=== PATIENT | female | born 1980 | race Two or more races ===

== ENCOUNTER → 2017-01-15 | Outpatient (CLI) | payer BC, OTHER ==
[~2017-01-15] MED LIST: FENTANYL PF 100 MCG/2ML ONE; HYDR-3240 PO; IBUP-1222 PO; MIDAZOLAM 1 MG/ML, 2ML ONE; NONE PER PT; OXYC-302 PO
== END ==
LOC: STAR 12:29
PROVIDERS: ATTEND Obstetrics & Gynecology Female Pelvic Medicine and Reconstructive Surgery
DX: Z02.9 Encounter for administrative examinations, unspecified (principal)

== ENCOUNTER 2017-01-20 11:53 | Observation (INO) | payer BC, OTHER ==
[2017-01-15 13:08] VITALS: BP 107/76
[~2017-01-20] VITALS: Ht 160 cm; Wt 74.7 kg
[~2017-01-20 11:53] MED LIST changes: +CEFAZOLIN 1,000 MG ONE; +DEXAMETHASONE 4 MG/ML, 1ML ONE; -FENTANYL PF 100 MCG/2ML ONE; +GLYCOPYRROLATE 0.2MG/1ML, 5ML ONE; +KETOROLAC 30 MG/1 ML ONE; -MIDAZOLAM 1 MG/ML, 2ML ONE; +NEOSTIGMINE 1 MG/ML, 10ML ONE; +ONDANSETRON 2MG/ML, 2ML ONE; +PROPOFOL 10 MG/ML, 20ML ONE; +ROCURONIUM 10 MG/ML ONE
[2017-01-20] MEDS ORDERED: LACTATED RINGERS 1,000 ML IV SCH (12:39)
[2017-01-20] MEDS ORDERED: LIDOCAINE 1%, 2ML ONE (12:52)
[2017-01-20] MEDS ORDERED: LIDOCAINE 1%, 2ML SQ PRN (13:00)
[2017-01-20 13:04] LABS: HCG UR OBC PASS
[2017-01-20] MEDS ORDERED: EPINEPHRINE 1 MG/ML, 1ML ONE (15:58)
[2017-01-20] MEDS ORDERED: ACETAMINOPHEN 325 MG TABLET PO PRN (16:30)
[2017-01-20] MEDS ORDERED: OXYcodone 5 MG/5 ML ORAL.SOL UDC PO PRN (16:30)
[2017-01-20] MEDS ORDERED: METOCLOPRAMIDE 5 MG/ML, 2ML IV PRN (16:30)
[2017-01-20] MEDS ORDERED: PROMETHAZINE 25 MG/ML, 1ML IV PRN (16:30)
[2017-01-20] MEDS ORDERED: ONDANSETRON 2MG/ML, 2ML IVPush PRN (16:30)
[2017-01-20] MEDS ORDERED: HYDROmorphone 1 MG/ML, 1ML IV PRN ×2 (16:30→22:00)
[2017-01-20] MEDS ORDERED: HYDROmorphone 1 MG/ML, 1ML ONE (18:03)
[2017-01-20] MEDS ORDERED: ACETAMINOPHEN 650 MG/20.3 ML UDC ONE (18:03)
[2017-01-20] MEDS ORDERED: ONDANSETRON 2MG/ML, 2ML ONE (18:03)
[2017-01-20] MEDS ORDERED: FENTANYL PF 100 MCG/2ML ONE (18:03)
[2017-01-20] MEDS ORDERED: OXYcodone 5 MG/5 ML ORAL.SOL UDC ONE (18:04)
[2017-01-20] MEDS: FENTANYL PF 100 MCG/2ML IV PRN ×2 (18:17→18:34)
[2017-01-20 21:30] VITALS: BP 106/60
[2017-01-20] MEDS ORDERED: OXYcodone/APAP 5/325MG TABLET PO PRN (22:00)
[2017-01-20] MEDS ORDERED: HYDROcodone/APAP 5/325 TABLET PO PRN (22:00)
[2017-01-20] MEDS ORDERED: ONDANSETRON 2MG/ML, 2ML IV PRN (22:00)
[2017-01-20] MEDS ORDERED: PROMETHAZINE 25 MG/ML, 1ML IV ONE (22:00)
[2017-01-20] MEDS ORDERED: KETOROLAC 30 MG/1 ML IV PRN (22:00)
[2017-01-20] MEDS ORDERED: IBUPROFEN 600 MG TABLET PO PRN (22:00)
== END 2017-01-21 06:00 | disposition home or self-care (01) ==
LOC: OUT 11:53 → 4NOR 20:20 → OUT 21:40 → 4NOR 21:41 → UNDOADMIN 21:41 → UNDODISIN 01-21 06:00
PROVIDERS: ADMIT Obstetrics & Gynecology Female Pelvic Medicine and Reconstructive Surgery; ATTEND Obstetrics & Gynecology Female Pelvic Medicine and Reconstructive Surgery
DX: N92.1 Excessive and frequent menstruation with irregular cycle (principal); N94.6 Dysmenorrhea, unspecified; N39.3 Stress incontinence (female) (male); N81.11 Cystocele, midline; N81.5 Vaginal enterocele; N81.6 Rectocele; N81.89 Other female genital prolapse; Z30.2 Encounter for sterilization
CPT/HCPCS: 57265; 57288; 58563; 58662; 81025; C1771; G0378; J0171; J0690; J1100; J1885; J2250; J2405; J2704; J2710; J3010; J3490; J7120

== ENCOUNTER 2021-02-15 10:32 | Outpatient (CLI) | payer OTHER, MEDICAID ==
[~2021-02-15 10:32] MED LIST changes: -CEFAZOLIN 1,000 MG ONE; -DEXAMETHASONE 4 MG/ML, 1ML ONE; -GLYCOPYRROLATE 0.2MG/1ML, 5ML ONE; +HYDR-2214 PO; -HYDR-3240 PO; -KETOROLAC 30 MG/1 ML ONE; -NEOSTIGMINE 1 MG/ML, 10ML ONE; -ONDANSETRON 2MG/ML, 2ML ONE; -OXYC-302 PO; +OXYC1TAB12 PO; -PROPOFOL 10 MG/ML, 20ML ONE; -ROCURONIUM 10 MG/ML ONE
== END 2021-02-15 23:59 | disposition home or self-care (01) ==
LOC: STAR 10:32
PROVIDERS: ATTEND Obstetrics & Gynecology Female Pelvic Medicine and Reconstructive Surgery
DX: Z02.9 Encounter for administrative examinations, unspecified (principal)

== ENCOUNTER 2021-02-19 05:22 | Day surgery (SDC) | payer OTHER, MEDICAID ==
[~2021-02-19] VITALS: Ht 162.6 cm; Wt 76.5 kg
[2021-02-19 06:17] VITALS: BP 119/81
[2021-02-19] MEDS ORDERED: LACTATED RINGERS 1,000 ML IV SCH (06:30)
[2021-02-19] MEDS ORDERED: CHLORHEXIDINE 15 ML UDC PO ONE (06:30)
[2021-02-19] MEDS ORDERED: EPINEPHRINE 1 MG/ML, 1ML ONE (06:43)
[2021-02-19] MEDS ORDERED: FUROSEMIDE 20 MG/2 ML ONE (06:43)
[2021-02-19] MEDS ORDERED: GENTAMICIN 80 MG/2 ML ONE (06:43)
[2021-02-19] MEDS ORDERED: BUPIVACAINE/PF 0.25% ONE (06:43)
[2021-02-19] MEDS ORDERED: VANCOMYCIN 500 MG ONE (06:43)
[2021-02-19] MEDS ORDERED: FENTANYL PF 250 MCG/5ML ONE (07:17)
[2021-02-19] MEDS ORDERED: MIDAZOLAM 1 MG/ML, 2ML ONE (07:17)
[2021-02-19] MEDS ORDERED: MEPERIDINE/PF 25MG/0.5ML IVPush PRN (08:30)
[2021-02-19] MEDS ORDERED: DIAZEPAM 5 MG/ML, 2ML IV PRN ×2 (08:30)
[2021-02-19] MEDS ORDERED: ALBUTEROL SULFATE 2.5 MG/3 ML NPPB PRN (08:30)
[2021-02-19] MEDS ORDERED: hydrALAzine 20 MG/ML, 1ML IV PRN (08:30)
[2021-02-19] MEDS ORDERED: METOCLOPRAMIDE 5 MG/ML, 2ML IV PRN (08:30)
[2021-02-19] MEDS ORDERED: KETOROLAC 30 MG/1 ML IV PRN (08:30)
[2021-02-19] MEDS ORDERED: LABETALOL 5MG/ML, 20ML IV PRN (08:30)
[2021-02-19] MEDS ORDERED: FENTANYL PF 100 MCG/2ML IV PRN (08:30)
[2021-02-19] MEDS ORDERED: PROMETHAZINE 25 MG/ML, 1ML IV PRN (08:30)
[2021-02-19] MEDS ORDERED: HYDROmorphone 1 MG/ML, 1ML INJ IV PRN (08:30)
[2021-02-19] MEDS ORDERED: ONDANSETRON 2MG/ML, 2ML IVPush PRN (08:30)
[2021-02-19] MEDS ORDERED: ONDANSETRON 2MG/ML, 2ML ONE (10:47)
[2021-02-19] MEDS ORDERED: KETOROLAC 30 MG/1 ML ONE (10:47)
[2021-02-19] MEDS ORDERED: ACETAMINOPHEN 650 MG/20.3 ML UDC ONE (11:18)
[2021-02-19] MEDS ORDERED: ACETAMINOPHEN 650 MG/20.3 ML UDC PO PRN (11:30)
[2021-02-19] MEDS: OXYcodone 5 MG/5 ML ORAL.SOL UDC PO PRN ×2 (11:40→12:35)
== END 2021-02-19 15:15 | disposition home or self-care (01) ==
LOC: OUT 05:22
PROVIDERS: ATTEND Obstetrics & Gynecology Female Pelvic Medicine and Reconstructive Surgery
DX: N81.89 Other female genital prolapse (principal); N81.11 Cystocele, midline; N81.5 Vaginal enterocele; N81.6 Rectocele; D25.9 Leiomyoma of uterus, unspecified; N39.46 Mixed incontinence; N83.201 Unspecified ovarian cyst, right side; N88.8 Other specified noninflammatory disorders of cervix uteri
CPT/HCPCS: 57265; 57282; 57288; 58552; 58662; 81025; 88307; C1771; J0171; J1580; J1885; J1940; J2250; J2405; J3010; J3370; J7120